=== PATIENT | male | born 1975 | race Caucasian/White ===

== ENCOUNTER 2023-11-16 22:01 | Emergency (ER) | payer OTHER, SELFPAY ==
[2023-11-16 22:05] VITALS: BP 184/108; PULSE 67; TEMP 37.1; O2SAT 100; BMI 25.8
--- NOTE | 2023-11-16 22:29 | PC.NURSE ---
Pt refuses EKG as well as CT scan of head. Pt educated on importance of these tests but continues to refuse. Pt is agreeable to medications ordered by physician. Physician is aware.
[2023-11-16 22:32] LABS: Basophils Absolute Auto 0.1 10^3/uL (0.0-0.1); Basophils Percent Auto 0.7 % (0.2-2.0); Eosinophils Absolute Auto 0.2 10^3/uL (0.0-0.7); Eosinophils Percent Auto 2.4 % (0.9-7.0); Hematocrit 50.2 % (42.0-54.0); Immature Granulocytes Abs Auto 0.01 10^3/uL (0.00-0.03); Immature Granulocytes Pct Auto 0.1 % (0.0-0.5); Lymphocytes Absolute Auto 2.5 10^3/uL (1.2-3.8); Lymphocytes Percent Auto 35.5 % (20.5-60.0); Mean Corpuscular HGB Conc 35.9 g/dL (29.9-35.2); Mean Corpuscular Hemoglobin 32.8 pg (25.9-34.0); Mean Corpuscular Volume 91.6 fL (80.0-94.0); Mean Platelet Volume 12.2 fL (9.5-13.5); Monocytes Absolute Auto 0.9 10^3/uL (0.3-0.8); Monocytes Percent Auto 12.2 % (1.7-12.0); Neutrophils Absolute Auto 3.5 10^3/uL (1.4-6.5); Neutrophils Percent Auto 49.1 % (43.0-75.0); Platelet Count 165 10^3/uL (150-450); Red Blood Count 5.48 10^6/uL (4.70-6.10); Red Cell Distribution Width 11.9 % (11.0-15.0); White Blood Count 7.2 10^3/uL (4.0-11.0)
[2023-11-16] MEDS: KETOROLAC TROMETHAMINE 30 MG/ML VIAL 15 MG IVP (22:41)
[2023-11-16] MEDS: ACETAMINOPHEN 325 MG TABLET 650 MG PO (22:41)
[2023-11-16] MEDS: PROMETHAZINE HCL 25 MG in 0.9 % SODIUM CHLORIDE 50 ML 204 MG IV (22:41)
[2023-11-16] MEDS: MAGNESIUM SULFATE IN WATER 2 GM/50 ML PREMIX IV (22:42)
[2023-11-16] MEDS: 0.9 % SODIUM CHLORIDE 1,000 ML 1000 ML IV (22:42)
[2023-11-16 22:43] LABS: Anion Gap 9.5; Calcium 9.4 mg/dL (8.5-10.1); Carbon Dioxide 29.1 mmol/L (21.0-32.0); Chloride 102 mmol/L (98-107); Estimated GFR (African America >60 (>=60 mL/min/1.73m^2); Estimated GFR (Non-African Ame >60 (>=60 mL/min/1.73m^2); Glucose 89 mg/dL (74-106); Potassium 3.6 mmol/L (3.5-5.1); Sodium 137 mmol/L (136-145)
[2023-11-16 23:04] LABS: Bilirubin Urine NEGATIVE (NEGATIVE); Blood Urine NEGATIVE (NEGATIVE); Clarity Urine CLEAR (CLEAR); Color Urine LT. YELLOW (YELLOW); Glucose Urine UA NEGATIVE (NEGATIVE); Ketones Urine NEGATIVE (NEGATIVE); Leukocyte Esterase Urine NEGATIVE (NEGATIVE); Nitrite Urine NEGATIVE (NEGATIVE); Protein Urine NEGATIVE (NEG/TRACE); Urobilinogen Urine 0.2 EU/dL (0.2-1.0)
[2023-11-16 23:12] LABS: Bacteria Urine NONE SEEN #/HPF (NONE SEEN); Cast Seen? NONE SEEN #/LPF (NONE SEEN); Crystals Seen? None Seen #/HPF (None Seen); Mucus Urine NONE SEEN (NONE SEEN); RBC Urine 0-2 #/HPF (0-2); Squamous Epithelial Cell Urine NONE SEEN #/LPF (NONE/RARE); Urine Culture Indicated NO; WBC Urine NONE SEEN #/HPF (NONE SEEN)
[2023-11-16 23:30] VITALS: BP 167/96
[2023-11-17 00:20] VITALS: BP 167/96
--- NOTE | 2023-11-17 00:32 | ED_ITS ---
HPI HPI - General Adult General Chief complaint: Headache Stated complaint: Hypertension Time Seen by Provider: 11/16/23 22:10 Source: patient Mode of arrival: walk-in Limitations: no limitations History of Present Illness HPI narrative: 48-year-old male to the emergency department with chief complaint of elevated blood pressure and headache. Patient reports he has had headache and yesterday. It is a segmental. Is throbbing in nature. He reports getting his blood pressure at home and it was increasing. He has a history of hypertension not currently on any medic patients. He reports that he had many side effects from the past. He denies any vision changes, difficulty speaking, numbness, weakness, tingling. He denies any chest pain or shortness of breath. He is otherwise at his baseline health. Related Data Home Medications ?Medication ?Instructions ?Recorded ?Confirmed No Known Home Medications 11/16/23 11/16/23 Allergies Allergy/AdvReac Type Severity Reaction Status Date / Time No Known Drug Allergies Allergy Verified 11/16/23 22:11 Opioid HPI Opioid Management Most Recent Opioid Data: No Data to Display Review of Systems ROS Status of ROS 10 or more systems reviewed and unremark able except as noted in history and below PFSH PFSH Social History Little interest or pleasure in doing things: not at all Feeling down, depressed, or hopeless: not at all Exam Narrative Exam Narrative: VITALS: I have reviewed the triage vital signs. GENERAL: Well developed, well appearing adult in no acute distress. NEURO: Alert and oriented x4. Moves all extremities. Face is symmetric and expressive. Cranial nerves II through XII grossly intact as tested. Muscular strength and sensation grossly intact upper and lower extremities bilaterally. No dysarthria. No aphasia. No ataxia. Normal gait. NIHSS 0. EYES: PERRL. No scleral icterus or conjunctival injection. No discharge. HENT: Normocephalic, atraumatic. Hearing is grossly intact. Nares grossly patent and without discharge. Mucous membranes moist. NECK: No JVD. Patient moves neck without restriction. CARDIO: Rhythm regular. Normal rate. No murmur, rub, or gallop. Pulses equal bilaterally in the upper and lower extremity. No lower extremity edema. PULM: Lungs clear to auscultation in all lerner. No wheezes, rales, or rhonchi. No conversational dyspnea. No splinting, stridor, or accessory muscle use. GI/: Abdomen is soft and non-tender. Normoactive bowel sounds. EXTREMITIES: Symmetric muscle bulk. No joint swelling. No clubbing, cyanosis, or deformity. SKIN: Warm and dry. Normal turgor. No rash or lesions appreciated. PSYCH: Mood, affect, and interaction is appropriate to the setting. Constitutional Vital Signs, click to edit/add: Last Vital Signs Temp 98.8 F 11/16/23 22:05 Pulse 67 11/16/23 22:05 Resp 18 11/16/23 22:05 BP 167/96 H 11/17/23 00:20 Pulse Ox 100 11/16/23 22:05 O2 Del Method Room Air 11/16/23 22:05 Course Vital Signs Vital signs: Vital Signs Temperature 98.8 F 11/16/23 22:05 Pulse Rate 67 11/16/23 22:05 Respiratory Rate 18 11/16/23 22:05 Blood Pressure 184/108 H 11/16/23 22:05 Pulse Oximetry 100 11/16/23 22:05 Oxygen Delivery Method Room Air 11/16/23 22:05 Temperature 98.8 F 11/16/23 22:05 Pulse Rate 67 11/16/23 22:05 Respiratory Rate 18 11/16/23 22:05 Blood Pressure 167/96 H 11/17/23 00:20 Pulse Oximetry 100 11/16/23 22:05 Oxygen Delivery Method Room Air 11/16/23 22:05 Medical Decision Making MDM Narrative Medical decision making narrative: 48-year-old male to the emergency department with chief complaint of headache and hypertension. Hypertensive, otherwise stable vitals. The patient is afebrile. No focal neurologic deficits appreciated on exam. Discussed with the patient. New headache for him. He describes as severe in nature. I recommend a CT scan of his head to rule out SAH or other potential acute causes of headache. He declines a CT scan citing cost with insurance. He also declines an EKG. He was okay with labs. Migraine cocktail was given to the patient. Lab work is unremarkable. Patient observed for 2 hours. His headache improved significantly. He is sleeping in the room. He arouses easily and discussed this. He feels much improved. His blood pressure did decrease substantially as well. Discussed ongoing monitoring of his blood pressure at home, keeping a blood pressure log, following up with PCP. No indication to start therapy at this time as he has been on multiple meds in the past cannot remember which she tolerated. Return precautions were discussed. All questions were answered. The patient was discharged home. Medical Records Medical records reviewed: Yes I reviewed the patient's medical records Lab Data Lab results reviewed: Yes I reviewed the patient's lab results Labs: Lab Results 11/16/23 11/16/23 Range/Units 22:10 22:55 WBC 7.2 (4.0-11.0) 10^3/uL RBC 5.48 (4.70-6.10) 10^6/uL Hgb 18.0 (14.0-18.0) g/dL Hct 50.2 (42.0-54.0) % MCV 91.6 (80.0-94.0) fL MCH 32.8 (25.9-34.0) pg MCHC 35.9 H (29.9-35.2) g/dL RDW 11.9 (11.0-15.0) % Plt Count 165 (150-450) 10^3/uL MPV 12.2 (9.5-13.5) fL Neut % (Auto) 49.1 (43.0-75.0) % Lymph % (Auto) 35.5 (20.5-60.0) % [place] % (Auto) 12.2 H (1.7-12.0) % Eos % (Auto) 2.4 (0.9-7.0) % Baso % (Auto) 0.7 (0.2-2.0) % Neut # (Auto) 3.5 (1.4-6.5) 10^3/uL Lymph # (Auto) 2.5 (1.2-3.8) 10^3/uL [place] # (Auto) 0.9 H (0.3-0.8) 10^3/uL Eos # (Auto) 0.2 (0.0-0.7) 10^3/uL Baso # (Auto) 0.1 (0.0-0.1) 10^3/uL Abs Immat Gran (auto) 0.01 (0.00-0.03) 10^3/uL Imm/Tot Granulo (auto) 0.1 (0.0-0.5) % Sodium 137 (136-145) mmol/L Potassium 3.6 (3.5-5.1) mmol/L Chloride 102 (98-107) mmol/L Carbon Dioxide 29.1 (21.0-32.0) mmol/L Anion Gap 9.5 BUN 11.0 (7.0-18.0) mg/dL Creatinine 1.00 (0.70-1.30) mg/dL Est GFR ( Amer) >60 (>=60 mL/min/1.73m^2) Est GFR (Non-Af Amer) >60 (>=60 mL/min/1.73m^2) BUN/Creatinine Ratio 11.0 Glucose 89 (74-106) mg/dL Calcium 9.4 (8.5-10.1) mg/dL Urine Color Lt. yellow (YELLOW) Urine Clarity Clear (CLEAR) Urine pH 7.0 (5.0-9.0) Ur Specific [place] 1.010 (1.005-1.025) Urine Protein Negative (NEG/TRACE) mg/dL Urine Glucose (UA) Negative (NEGATIVE) mg/dL Urine Ketones Negative (NEGATIVE) mg/dL Urine Occult Blood Negative (NEGATIVE) Urine Nitrite Negative (NEGATIVE) Urine Bilirubin Negative (NEGATIVE) Urine Urobilinogen 0.2 (0.2-1.0) EU/dL Ur Leukocyte Esterase Negative (NEGATIVE) Urine RBC 0-2 (0-2) #/HPF Urine WBC None seen (NONE SEEN) #/HPF Ur Squamous Epith Cells None seen (NONE/RARE) #/LPF Urine Crystals None seen (None Seen) #/HPF Urine Bacteria None seen (NONE SEEN) #/HPF Urine Casts None seen (NONE SEEN) #/LPF Urine Mucus None seen (NONE SEEN) Ur Culture Indicated? No Discharge Plan Discharge Chief Complaint: Headache Clinical Impression: Headache, Hypertension Patient Disposition: Home, Self-Care Time of Disposition Decision: 00:08 Condition: Good Mode of Transportation: Private Vehicle Prescriptions / Home Meds: No Action No Known Home Medications Print Language: Georgian Instructions: How to Take a Blood Pressure Reading (ED), Hypertension (ED) Additional Instructions: Call the office of your primary care doctor to arrange for follow-up within the above-stated timeframe. Your ED visit was focused on your acute issue and does not replace primary care. You should review your labs, imaging, and diagnoses from this ED visit with your primary care physician. There may be non-emergent/ incidental findings that need further evaluation. You should review your vital signs including blood pressure with your PCP. If you were prescribed medications you should discuss possible side-effects and drug interactions with your pharmacist. Call 911 or go to the nearest Emergency Department if you develop any new or worsening symptoms. Seek immediate medical attention if you develop: worsening headache, nausea, vomiting, confusion, weakness, loss of motion in your arms or legs, loss of control of your urine Keep daily blood pressure log. Follow-up with your primary care doctor discuss your blood pressure and to restart therapy if appropriate. Referrals: HENRY BOND [Primary Care Provider] - 1 week Discharge Date/Time: 11/17/23 00:20
== END 2023-11-17 00:20 | disposition home or self-care (01) ==
PROVIDERS: Emergency Provider Student in an Organized Health Care Education/Training Program; PCP Family Medicine
DX: R51.9 Headache, unspecified (principal); I10 Essential (primary) hypertension
CPT/HCPCS: 36415; 80048; 81001; 85025; 96365; 96368; 96375; 99284; J1885; J2250; J3475